=== PATIENT | female | born 1985 | race Caucasian/White ===

== ENCOUNTER 2019-01-20 11:53 | Outpatient (CLI) | payer BC ==
[~2019-01-20 11:53] MED LIST: Iopamidol 300 61% 30 ML VIAL ONE
--- NOTE | 2019-01-26 12:23 | RAD ---
Exam: Hysterosalpingogram HISTORY: infertility, unspecified. Patient reports previous tubal ligation COMPARISON: None Exposure: 0.7 minutes 2370.6 mcg/sq m FINDINGS: Successful hysterosalpingogram. Endometrium is unremarkable. Both fallopian tubes are opaci fied. Free spillage in the left and right hemipelvis. IMPRESSION: Successful hysterosalpingogram. Bilateral fallopian tubes are patent. POS: CLEMENT
== END 2019-01-20 11:54 | disposition home or self-care (01) ==
LOC: RAD 11:53
PROVIDERS: ATTEND Student in an Organized Health Care Education/Training Program
DX: N97.9 Female infertility, unspecified (principal)
CPT/HCPCS: 58340; 74740; Q9967

== ENCOUNTER 2019-11-07 17:41 | Day surgery (SDC) | payer BC ==
[2019-11-07] MEDS ORDERED: hydrALAZINE 20 MG/ML VIAL SLOW IVP PRN (17:59)
[2019-11-07 18:12] VITALS: BP 124/62; TEMP 98.6; BMI 39.1
[2019-11-07 18:39] LABS: Amnisure Internal Control QC ACCEPTABLE (ACCEPTABLE)
[2019-11-07 18:46] LABS: Amnisure Test No Membranes Rupture (No Rupture)
--- NOTE | 2019-11-07 20:42 | ULT ---
LIMITED OB ULTRASOUND: 11/07/19 PROVIDED CLINICAL HISTORY: Decreased movement. FINDINGS: Single live intrauterine gestation is documented in breech presentation. Heart rate of 132 beats per minute documented. The placenta is posteriorly located without evidence of previa. CHRISTI is 13.6. Shanika mated gestational age based on today's ultrasound is 29 weeks, 5 days. Estimated weight is 1472 +/- 218 grams. BIOMETRY: BPD 27 weeks, 5 days 6.9 cm Head circumference 30 weeks, 0 days 27.5 cm Abdominal circumference 30 weeks, 1 day 26.1 cm Femur length 29 weeks, 6 days 5.7 cm The cervix is obscured. IMPRESSION: Single live intrauterine gestation, 29 weeks, 5 days by ultrasound. POS: CRISTHIAN
--- NOTE | 2019-11-08 07:58 | SS ---
DATE OF ADMISSION: 11/07/2019 DATE OF DISCHARGE: 11/07/2019 REGULAR PHYSICIAN: Uyen Poole MD EVALUATING PHYSICIAN: Khris Gilbert MD CHIEF COMPLAINT: Decreased movement, possible leakage of fluid. HISTORY OF PRESENT ILLNESS: Ms. Garcia is a 34-year-old, white, G3, P2 with an estimated date of confinement of 02/01/2020, who presents complaining of decrease in movement over the last three days as well as suspected leakage of fluid. She denies vaginal bleeding. Her care has been with Dr. Poole without problems. PAST OBSTETRICAL HISTORY: Includes one vaginal delivery followed by a , for what she reports is a large baby. PAST MEDICAL HISTORY: None. PAST SURGICAL HISTORY: with tubal followed by tubal reversal. CURRENT MEDICATIONS: vitamins. ALLERGIES: NO KNOWN ALLERGIES. SOCIAL HISTORY: Denies tobacco, alcohol, or drug use. FAMILY HISTORY: Unremarkable. REVIEW OF SYSTEMS: Denies nausea, vomiting, fever, chills, cough, recent travel, or vaginal bleeding. PHYSICAL EXAMINATION: VITAL SIGNS: In triage, her vital signs are stable and she is afebrile. ABDOMEN: Soft, nontender, and gravid. PELVIC: Speculum exam of the vagina shows the cervix to be closed. No amniotic fluid is seen. DIAGNOSTIC DATA: AmniSure returns negative. VP3 screening shows no evidence of vaginitis. ultrasound shows a onvak with an CHRISTI of 13.6. ASSESSMENT: 1. 27 and 5/7th week intrauterine . 2. Reassuring testing tonight. 3. No evidence of ruptured membranes. PLAN: The patient will be dismissed to home. The patient did report that she has felt active movement during her evaluation here at the hospital. She was reassured, and she states that she has an appointment with Dr. Poole this week. Job ID: [id number]
== END 2019-11-07 20:30 | disposition home or self-care (01) ==
LOC: L&D/OP 17:41
PROVIDERS: ATTEND Student in an Organized Health Care Education/Training Program
DX: O36.8120 Decreased fetal movements, second trimester, not applicable or unspecified (principal); O34.219 Maternal care for unspecified type scar from previous cesarean delivery; Z3A.27 27 weeks gestation of pregnancy
CPT/HCPCS: 76815; 84112; 87480; 87510; 87660; 99285

== ENCOUNTER 2020-01-15 10:09 | Outpatient (CLI) | payer BC, OTHER ==
[2020-01-16 13:12] LABS: SARS-CoV-2 MS2 Positive; SARS-CoV-2 N Gene Negative; SARS-CoV-2 S Gene Negative; SARS-CoV-2 orf1ab Negative
== END 2020-01-15 10:10 | disposition home or self-care (01) ==
LOC: LABBT 10:09
PROVIDERS: ATTEND Student in an Organized Health Care Education/Training Program
DX: Z01.812 Encounter for preprocedural laboratory examination (principal); Z11.59 Encounter for screening for other viral diseases
CPT/HCPCS: 87635; U0003

== ENCOUNTER 2020-01-17 18:00 | Inpatient (IN) | payer BC, OTHER ==
[~2020-01-17 18:00] MED LIST changes: +Bupivacaine 0.25% HCL 30 ML VIAL ONE; +Bupivacaine HCl 0.5%/Epinephrine 1:200,000/PF 30 ml Vial ONE; +EPHEDRINE 25 MG/5 ML SYRINGE ONE; -Iopamidol 300 61% 30 ML VIAL ONE
[2020-01-17] MEDS ORDERED: HYDROcodone/Acetaminophen 5/325 mg Tablet PO PRN ×2 (23:49)
[2020-01-17] MEDS ORDERED: hydrALAZINE 20 MG/ML VIAL SLOW IVP PRN (23:49)
[2020-01-17] MEDS ORDERED: Ibuprofen 800 MG TAB PO PRN (23:49)
[2020-01-17] MEDS ORDERED: Butorphanol Tartrate 1 MG/ML VIAL SLOW IVP PRN (23:49)
[2020-01-17] MEDS ORDERED: Misoprostol 200 MCG TAB PR PRN (23:49)
[2020-01-17] MEDS ORDERED: Lidocaine 1% (PF) 30 ML VIAL SC PRN (23:49)
[2020-01-17] MEDS ORDERED: Diphenoxylate HCl/Atropine Tablet PO PRN (23:49)
[2020-01-17] MEDS ORDERED: NS / Oxytocin 40 units/1000ml 1,000 ML IV PRN (23:49)
[2020-01-17] MEDS ORDERED: Acetaminophen 500 MG TAB PO PRN (23:49)
[2020-01-17] MEDS ORDERED: Promethazine HCl 25 MG/ML VIAL IM PRN (23:49)
[2020-01-17] MEDS ORDERED: Carboprost 250 MCG/ML AMP IM PRN (23:49)
[2020-01-17] MEDS ORDERED: Methylergonovine 0.2 MG/ML VIAL IM PRN (23:49)
[2020-01-17] MEDS ORDERED: Ondansetron PF 4 MG/2 ML Vial IVP PRN (23:49)
[2020-01-18] MEDS: Lactated Ringer's 1,000 ML IV SCH ×4 (00:45→23:40)
[2020-01-18 00:52] VITALS: BMI 43.8
[2020-01-18 01:05] LABS: Hemoglobin 10.3 g/dL (12.0-16.0); Mean Corpuscular HGB CONC 34.7 g/dL (32.0-36.0); Mean Corpuscular Hemoglobin 30.5 pg (27.0-31.0); Mean Corpuscular Volume 87.7 fL (78.0-98.0); Mean Platelet Volume 8.3 fL (7.4-10.4); Platelet Count 361 thou/uL (130-400); RBC Distribution Width 12.6 % (11.5-14.5); Red Blood Cell (RBC) Count 3.39 mill/uL (4.20-5.40); White Blood Cell (WBC) Count 10.4 thou/uL (4.8-10.8)
--- NOTE | 2020-01-18 01:17 | PDOC.BPN ---
- Brief Progress Note Asked by Dr Poole to place cervical balloon for TOLAC candidate. Procedure reviewed with the patient. Cook cervical balloon IFU noted and information reviewed.Patient agrees to placement. NST reviewed prior. CX 08/21/-2/Cep by in Cook Balloon inserted without issue and inflated per IFU. 60 cc per balloon.
[2020-01-18 01:43] LABS: HBSAg Index 0.15 S/CO (0-0.99); Hep B Surf Ag Non-Reactive S/CO (NonReactive)
[2020-01-18 04:34] LABS: Syphilis Antibody Nonreactive (Nonreactive); Syphilis Antibody Index 0.03 S/CO (<1.00 Non-Reactive)
[2020-01-18] MEDS ORDERED: NS / Oxytocin 40 units/1000ml 1,000 ML ONE (07:53)
[2020-01-18] MEDS ORDERED: Oxytocin 10 UNITS/ML VIAL ONE ×2 (07:53→17:28)
[2020-01-18] MEDS ORDERED: NS w/ Oxytocin 10 units 500 ML IVPB SCH (08:30)
--- NOTE | 2020-01-18 10:23 | PDOC.LDHP ---
Labor and Delivery H&P Chief complaint: scheduled induction HPI: 34yo A1 at 38w0d by LMP here for TOLAC IOL due to A2GDM Current gestational age (weeks): 38 Due date: 02/01/20 Dating criteria: last menstrual period Grav: 4 Para: 2 Current complications: gestational diabetes Abnormal US findings: No Past Medical History: PCOS Current medications: pre- vitamins, other (metformin 1000mg q hs) Previous surgical history: low tranverse CS Allergies/Adverse Reactions: Allergies Allergy/AdvReac Type Severity Reaction Status Date / Time No Known Allergies Allergy Verified 01/18/20 00:43 Social history: none - Physical Exam Vital signs reviewed and normal: yes General: NAD Heart: RRR Lungs: CTAB Abdomen: gravid Extremeties: no edema FHT: category 1 [place] contractions every: 5min - Vaginal Exam cm dilated: 4 Effacement: 50% Station: -3 (arom clear) - OB Labs Blood type: AB RH: positive Antibody Screen: negative HIV: negative RPR: negative HEPSAg: negative 1 hour GCT: positive GBS: negative Urine drug screen: negative Rubella: immune - Plan Plan: admit to L&D, cervical ripening, labor augmentation if indicated, informed consent obtained, anesthesia consult for pain management -: desires TOLAC understands risk of uterine rupture of < 1 % and doubling of that risk if pitocin is used. Pt is a good candidate, EFW yesterdays sono was 45% ile. Pt wishes to proceed with IOL
[2020-01-18] MEDS ORDERED: Fentanyl 4 mcg/Bup 0.1% Cadd 100 ML ONE (11:20)
[2020-01-18] MEDS ORDERED: Bicitra 30 ML UDCUP ONE ×2 (16:56→17:03)
--- NOTE | 2020-01-18 17:02 | PDOC.LDPN ---
Labor & Delivery Progress Note - Subjective Subjective: comfortable - Objective Vital signs reviewed and normal: yes General: NAD Uterine fundus: non tender Dilation: 5 Effacement: 75% Station: -2 FHT: category 2, variable decelerations (mild) [place] contractions every: 2min, MVU >200 x 2hr -: No SVE change throughout the day despite adequate contractions. No abd pain but recurrent mild variables. Dispo for RCS due to FTP and repetitive variables.Pt wishes to proceed.
[2020-01-18] MEDS ORDERED: Azithromycin 500 MG VIAL ONE (17:16)
[2020-01-18] MEDS ORDERED: MORPHINE 5 MG/10 ML PF VIAL ONE (17:27)
[2020-01-18] MEDS ORDERED: Fentanyl 100 MCG/2 ML VIAL ONE (17:27)
[2020-01-18] MEDS ORDERED: Ondansetron PF 4 MG/2 ML Vial ONE (17:28)
--- NOTE | 2020-01-18 17:31 | PDOC.OPDEL ---
OB Operative/Delivery Note Delivery Dr/Surgeon: Zulema Assist: Reta Pre-Delivery Diagnosis: medically indicated induction (arrest of dilation at 5cm ) Procedure/Post Delivery Dx: repeat low transverse CS Weeks gestation: 38 Anesthesia: epidural - Findings A Sex: male - Additional Findings/Plan Placenta delivered: spontaneous findings: low transverse hysterotomy without extension, normal uterus, normal tubes, normal ovaries Post delivery plan: routine recovery
[2020-01-18] MEDS ORDERED: Bicitra 30 ML UDCUP PO SCH (17:45)
[2020-01-18] MEDS ORDERED: Azithromycin 500 MG in Sodium Chloride 0.9% 250 ML 250 ML IVPB SCH (17:45)
[2020-01-18] MEDS ORDERED: CEFAZOLIN 2 GM in Premix Bag 1 BAG IVPB SCH (17:45)
[2020-01-18] MEDS ORDERED: diphenhydrAMINE 50 MG/ML VIAL IVP PRN ×2 (17:57→23:29)
[2020-01-18] MEDS ORDERED: Promethazine HCl 25 MG/ML VIAL IM PRN ×3 (17:57→23:29)
[2020-01-18] MEDS ORDERED: Naloxone HCl 0.4 mg/ml Vial IVP PRN ×4 (17:57→23:29)
[2020-01-18] MEDS ORDERED: Naloxone HCl 0.4 mg/ml Vial IV PRN ×2 (17:57→23:29)
[2020-01-18] MEDS ORDERED: Promethazine HCl 25 MG SUPP PR PRN ×2 (17:57→23:29)
[2020-01-18] MEDS ORDERED: Ketorolac Tromethamine 30 MG/ML VIAL IVP PRN ×2 (17:57→23:29)
[2020-01-18] MEDS ORDERED: Ondansetron PF 4 MG/2 ML Vial IVP PRN ×3 (17:57→23:29)
[2020-01-18] MEDS ORDERED: Communication Order-Pharmacy FS SCH ×2 (18:00→23:30)
[2020-01-18] MEDS ORDERED: Simethicone Chewable 80 MG TAB PO PRN (20:25)
[2020-01-18] MEDS ORDERED: diphenhydrAMINE 25 MG CAP PO PRN (20:25)
[2020-01-18] MEDS ORDERED: Acetaminophen 325 MG TAB PO PRN (20:25)
[2020-01-18] MEDS ORDERED: HYDROcodone/Acetaminophen 5/325 mg Tablet PO PRN (20:25)
[2020-01-18] MEDS ORDERED: Lanolin Ointment 7 GM TUBE TOP PRN (20:25)
[2020-01-18] MEDS ORDERED: Zolpidem Tartrate 5 MG TAB PO PRN (20:25)
[2020-01-18] MEDS ORDERED: Bisacodyl 10 MG SUPP PR PRN (20:25)
[2020-01-18] MEDS ORDERED: hydrALAZINE 20 MG/ML VIAL SLOW IVP PRN (20:25)
[2020-01-18] MEDS ORDERED: Ibuprofen 800 MG TAB PO SCH (20:30)
[2020-01-19] MEDS: Docusate Calcium (SURFAK) 240 MG CAP PO SCH ×3 (00:36→21:47)
[2020-01-19] MEDS: Ferrous Sulfate 325 MG TAB PO SCH ×3 (00:37→21:47)
[2020-01-19] MEDS ORDERED: Ibuprofen 800 MG TAB PO SCH (06:00)
[2020-01-19] MEDS ORDERED: HYDROcodone/Acetaminophen 5/325 mg Tablet PO PRN ×3 (06:00→11:30)
[2020-01-19 06:51] LABS: Hemoglobin 9.5 g/dL (12.0-16.0); Mean Corpuscular HGB CONC 33.1 g/dL (32.0-36.0); Mean Corpuscular Hemoglobin 29.2 pg (27.0-31.0); Mean Corpuscular Volume 88.1 fL (78.0-98.0); Mean Platelet Volume 8.2 fL (7.4-10.4); Platelet Count 256 thou/uL (130-400); RBC Distribution Width 12.8 % (11.5-14.5); Red Blood Cell (RBC) Count 3.25 mill/uL (4.20-5.40); White Blood Cell (WBC) Count 13.1 thou/uL (4.8-10.8)
[2020-01-19] MEDS ORDERED: Adacel (T-DAP) 0.5 ML SYRINGE IM ONE (09:00)
[2020-01-19] MEDS: HYDROcodone/Acetaminophen 5/325 mg Tablet PO PRN ×3 (09:13→22:49)
[2020-01-19] MEDS: Prenatal Vitamin 1 TAB PO SCH (09:14)
[2020-01-19] MEDS: Ibuprofen 800 MG TAB PO SCH ×2 (15:18→21:47)
--- NOTE | 2020-01-20 05:58 | PDOC.PP ---
Post Progress Note Post Day #: POD2 Subjective: Doing well, ststed she would like DC home if possible (if baby ready) PO intake tolerated: yes Flatus: yes Ambulation: yes Vital Signs (12 hours) Temp Pulse Resp BP Pulse Ox 01/20/20 03:03 98.7 F 88 16 122/58 L 01/19/20 20:15 98.7 F 76 20 116/55 L 100 Weight Weight 280 lb Past vitals reviewed - Physical Examination General: NAD Respiratory: non-labored breathing Abdominal: lochia, no distention, appropriately TTP Extremities: negative homans (B) Skin: CS incision dry & intact (Incision C/D/I with DB), no rash Neurological: no gross focal deficits Psychiatric: A&Ox3, normal affect Result Diagrams: 01/19/20 06:24 Additional Labs: Post Labs Blood Type AB POSITIVE 01/18/20 02:23 Hep Bs Antigen Non-Reactive S/CO (NonReactive) 01/18/20 00:57 (1) S/P repeat low transverse Code(s): Z98.891 - HISTORY OF UTERINE SCAR FROM PREVIOUS SURGERY Status: Acute - Assessment/Plan POD2 and ok for DC. Follow up wound check in 2 weeks. Motrin as med
[2020-01-20] MEDS ORDERED: Ibuprofen 800 MG TAB PO SCH (06:00)
--- NOTE | 2020-01-20 06:02 | PDOC.PP ---
Post Progress Note Post Day #: POD1 Subjective: PT is 34y.o now P3 s/p RCS. In NICU with infant. Ambulating, passing, gas , with well controlled pain. PO intake tolerated: yes Flatus: yes Ambulation: yes Vital Signs (12 hours) Temp Pulse Resp BP Pulse Ox 01/20/20 03:03 98.7 F 88 16 122/58 L 01/19/20 20:15 98.7 F 76 20 116/55 L 100 Weight Weight 280 lb - Physical Examination General: NAD Respiratory: non-labored breathing Abdominal: appropriately TTP Extremities: negative homans (B) Skin: CS incision dry & intact Neurological: no gross focal deficits Psychiatric: A&Ox3, normal affect Result Diagrams: 01/19/20 06:24 Additional Labs: Post Labs Blood Type AB POSITIVE 01/18/20 02:23 Hep Bs Antigen Non-Reactive S/CO (NonReactive) 01/18/20 00:57 - Assessment/Plan POD1 with WNML exam. Routine PP care. Evaluate for discharge tomorrow or following day.
[2020-01-20] MEDS: Ibuprofen 800 MG TAB PO SCH ×2 (06:26→13:33)
[2020-01-20] MEDS: Ferrous Sulfate 325 MG TAB PO SCH (08:47)
[2020-01-20] MEDS: Prenatal Vitamin 1 TAB PO SCH (08:48)
[2020-01-20] MEDS: Docusate Calcium (SURFAK) 240 MG CAP PO SCH (08:48)
[2020-01-20 11:47] VITALS: BP 125/64; TEMP 98.6
--- NOTE | 2020-01-20 21:08 | OP ---
DATE OF PROCEDURE: 01/18/2020 PREOPERATIVE DIAGNOSES: 1. Intrauterine at 38 weeks and 0 days. 2. Prior x1, failed trial of labor. 3. Arrest of dilation at 5 cm. 4. Category 2 heart rate tracing. POSTOPERATIVE DIAGNOSES: 1. Intrauterine at 38 weeks and 0 days. 2. Prior x1, failed trial of labor. 3. Arrest of dilation at 5 cm. 4. Category 2 heart rate tracing. PROCEDURE PERFORMED: Repeat low-transverse section via Pfannenstiel skin incision. ANESTHESIA: Epidural. QUALITY CONTROL PROJECTIONIST SURGEON: Jamie, PGY-3 ESTIMATED BLOOD LOSS: 500 mL. COMPLICATIONS: None. DRAINS: Shepherd catheter. PATHOLOGY: None. FINDINGS: Male infant, cephalic presentation, clear amniotic fluid, weighing 7 pounds 9 ounces. Apgars 5, 6, and 8 at 10 minutes. OPERATIVE INDICATIONS: The patient presented for induction of labor with balloon ripening followed by AROM and Pitocin secondary to A2 gestational diabetes. The patient progressed to 4 cm with her cervical ripening and then AROM was performed at 07:30 in the morning. The patient was started on one by ones of Pitocin. She was increased to a maximum of 11 milliunits of Pitocin with internals in place. She had adequate uterine contractions for 4 hours and did not progress past 5 cm. At that time, the baby had minimal variability with some [id number] recurrent variable decelerations and at approximately 5:00 p.m., decision was made to proceed with repeat , which the patient agreed. DESCRIPTION OF PROCEDURE: The patient was taken to the operating room, where epidural anesthesia was found to be adequate. The patient was prepped and draped in a sterile fashion in the dorsal supine position with a leftward tilt. After ensuring adequacy of anesthesia, a Pfannenstiel skin incision was made and carried down to the underlying subcutaneous tissue with a knife. The fascia was nicked in the midline with a knife and carried laterally with the Robb scissors. The superior aspect of the fascia was tented with 2 Khari's and dissected off the rectus with the Robb. The inferior aspect of the fascia was tented with 2 Khari's and dissected off the rectus down the pubic symphysis. The rectus were cauterized and divided in the midline. The peritoneum was bluntly entered into. There were omental adhesions to the anterior abdominal wall that were taken down with Bovie cautery. The Lucas O retractor was placed and the vesicouterine peritoneum was incised with the Metzenbaum. The lower uterine segment was incised in a transverse fashion and extended with a Ruelas maneuver. The 's head was brought to the hysterotomy and delivered atraumatically. The cord was clamped and handed to awaiting Irvin team. Cord blood was obtained and the placenta was allowed to spontaneously deliver. The uterus was exteriorized, cleared of all clots and debris and repaired with a #1 Monocryl in a running locking fashion, noting excellent hemostasis. The uterus was placed back into the abdomen. The pelvis and pericolic gutters were irrigated and suctioned. Hemostasis was again noted to be excellent. The Lucas O retractor was removed. The rectus muscles were examined and noted to be hemostatic. The fascia was reapproximated with 0 PDS x2 sutures with excellent reapproximation. The subcutaneous tissue was irrigated and cauterized of any bleeders and reapproximated with a 2-0 plain gut in a running fashion. The skin was closed with 4-0 Monocryl in a subcuticular fashion. Dermabond was applied as well as a pressure dressing. The patient tolerated the procedure well. Sponge, lap, and needle counts correct x2. The patient was taken to recovery room in stable condition. Patient received Ancef 2 g and azithromycin 500 mg prior to the procedure. Job ID: [id number]
--- NOTE | 2020-01-23 02:13 | PQF ---
Bryson Scott JANELLE [id number] CLINICAL DOCUMENTATION CLARIFICATION FORM: POST DISCHARGE Addendum to original discharge summary date: ____ Late entry note date: __ DATE:01/23/2020 ATTN: Uyen Rodarte Please exercise your independent, professional judgment in responding to the clarification form. Clinical indicators are provided on the bottom of this form for your review Please check appropriate box(s): [ ] Associated Diagnosis: Acute blood loss Anemia [ ] Abnormal laboratory findings not clinically significant [ X] Other diagnosis ___iron deficiency anemia [ ] Unable to determine In addition, please specify: Present on Admission (POA): [ X ] Yes [ ] No [ ] Unable to determine For continuity of documentation, please document condition throughout progress notes and discharge summary. Thank You. CLINICAL INDICATORS - SIGNS / SYMPTOMS/ LABS are present in the medical record: Laboratory 01/17 RBC 3.39, Hgb 10.3, Hct 29.7 Laboratory 01/18 RBC 3.25, Hgb 9.5, Hct 28.6 Vital signs 01/17 BP 152/66, Pulse 102, Resp 18, Temp 99.1 Operative report p1 01/17 Dr Poole Estimated blood loss: 500 ml RISK FACTORS Operative report p1 01/17 38 weeks IUP Operative report p1 01/17 GDM Operative report p1 01/17 Pripr C/S Operative report 01/17- Arrest of dilation at 5cm Operative report p1 01/17- s/p Low-transverse CS TREATMENT Series of Hct and Hgb labs ordered 01/17 618 IV Lactated Ringer's 1L OCT 05 Ferrous Sulfate 325 mg oral (This form is maintained as a part of the permanent medical record) 2014 [employer]. All Rights Reserved [email or web address]
== END 2020-01-20 15:05 | disposition home or self-care (01) | DRG 788 ==
LOC: L&D 23:43 → 3SE 01-18 22:50
PROVIDERS: ADMIT Student in an Organized Health Care Education/Training Program; ATTEND Student in an Organized Health Care Education/Training Program
PROC: 0U7C7ZZ Dilation of Cervix, Via Natural or Artificial Opening (ICD-10-PCS; 2020-01-17)
PROC: 10907ZC Drainage of Amniotic Fluid, Therapeutic from Products of Conception, Via Natural or Artificial Opening (ICD-10-PCS; 2020-01-17)
PROC: 3E033VJ Introduction of Other Hormone into Peripheral Vein, Percutaneous Approach (ICD-10-PCS; 2020-01-17)
PROC: 10D00Z1 Extraction of Products of Conception, Low, Open Approach (ICD-10-PCS; principal; 2020-01-18)
DX: O24.425 Gestational diabetes mellitus in childbirth, controlled by oral hypoglycemic drugs (principal); Z3A.38 38 weeks gestation of pregnancy; Z37.0 Single live birth; O34.211 Maternal care for low transverse scar from previous cesarean delivery; O76 Abnormality in fetal heart rate and rhythm complicating labor and delivery; O62.1 Secondary uterine inertia; O99.02 Anemia complicating childbirth; D50.9 Iron deficiency anemia, unspecified
CPT/HCPCS: 36415; 36416; 51702; 85027; 86780; 86850; 86900; 86901; 87340; 87635; C1726; J0456; J0670; J0690; J1885; J2274; J2405; J2590; J3010; S0020; U0003